=== PATIENT | female | born 1995 | race African-American/Black ===

== ENCOUNTER 2018-08-23 04:16 | Day surgery (SDC) | payer OTHER ==
[2018-08-23 05:34] LABS: Bilirubin Negative (Negative); Glucose, Urine (Dipstick) Negative (Negative); Leukocyte Negative (Negative); Nitrite Negative (Negative); Protein, Urine (Dipstick) 100 mg/dL (Neg-Trace); pH, Urine 6.5 (5.0-9.0)
[2018-08-23 05:36] LABS: Blood, Urine Large (Negative); Clarity Cloudy (Clear)
[2018-08-23 05:47] LABS: RBC/HPF GREATER THAN 50-TNTC HPF (0-3)
[2018-08-23 05:48] LABS: WBC/HPF 0-3 HPF (0-3)
[2018-08-23 05:49] LABS: Bacteria/HPF None Seen HPF (None Seen); Hyaline Casts/LPF 0-3 HYALINE CAST LPF (0-3 Hyaline); Squamous Epithelial 0-3 HPF (0-3)
--- NOTE | 2018-08-24 01:59 | SS ---
DATE OF ADMISSION: 08/23/2018 DATE OF DISCHARGE: 08/23/2018 REGULAR PHYSICIAN: Doc Barr MD. EVALUATING PHYSICIAN: Roger Rosenthal MD CHIEF COMPLAINT: Blood noticed in urine last p.m. HISTORY OF PRESENT ILLNESS: Ms. Park is a 22-year-old black G3, P2-0-0-2 with an estimated date of confinement of 09/10/2018, who presents complaining of blood in her urine starting at approximately 9:00 pm last night. She denies pain with urination or flank pain. Her care has been with Dr. Barr without complications. PAST OBSTETRICAL HISTORY: Includes 2 uncomplicated vaginal deliveries at term. PAST MEDICAL HISTORY: None. PAST SURGICAL HISTORY: Includes repair of her left arm after falling through a glass window. CURRENT MEDICATIONS: vitamins. ALLERGIES: NO KNOWN ALLERGIES. SOCIAL HISTORY: Denies tobacco, alcohol, or drug use. FAMILY HISTORY: Unremarkable. PHYSICAL EXAMINATION: VITAL SIGNS: Stable. She is afebrile in triage. GENERAL: She is in no acute distress. She is pleasant. ABDOMEN: Soft, nontender, and gravid. PELVIC: Deferred. heart rate tracing is stable with no decelerations. No significant uterine contractions were seen. LABORATORY DATA: On urinalysis, her urine is red, cloudy with a specific gravity 1.020 with 2+ protein, large blood, and on microscopic, too numerous to count red cells. ASSESSMENT: 1. 38-week intrauterine . 2. Hematuria. PLAN: At this time, the patient has been empirically placed on Keflex 500 mg p.o. 4 times a day x7 days. Urine culture has been obtained. She was told to keep herself hydrated and follow up with Dr. Barr this week for further evaluation should her bloody urine continued. Job ID: [id number]
== END 2018-08-23 06:11 | disposition home or self-care (01) ==
LOC: L&D/OP 04:16
PROVIDERS: ATTEND Obstetrics & Gynecology
DX: O99.89 Other specified diseases and conditions complicating pregnancy, childbirth and the puerperium (principal); R31.9 Hematuria, unspecified; Z3A.38 38 weeks gestation of pregnancy
CPT/HCPCS: 81003; 81015; 87086; 99282

== ENCOUNTER 2018-09-07 19:15 | Inpatient (IN) | payer OTHER ==
[2018-09-07 19:57] VITALS: BMI 36.1
[2018-09-07] MEDS ORDERED: hydrALAZINE 20 MG/ML VIAL SLOW IVP PRN (20:24)
[2018-09-07] MEDS ORDERED: Ibuprofen 800 MG TAB PO PRN (20:24)
[2018-09-07] MEDS ORDERED: Methylergonovine 0.2 MG/ML VIAL IM PRN (20:24)
[2018-09-07] MEDS ORDERED: Misoprostol 200 MCG TAB PR PRN (20:24)
[2018-09-07] MEDS ORDERED: Lidocaine 1% (PF) 30 ML VIAL SC PRN (20:24)
[2018-09-07] MEDS ORDERED: Carboprost 250 MCG/ML AMP IM PRN (20:24)
[2018-09-07] MEDS ORDERED: Ondansetron PF 4 MG/2 ML Vial IVP PRN (20:24)
[2018-09-07] MEDS ORDERED: Diphenoxylate HCl/Atropine Tablet PO PRN ×2 (20:24)
[2018-09-07] MEDS ORDERED: HYDROcodone/Acetaminophen 5/325 mg Tablet PO PRN ×2 (20:24)
[2018-09-07] MEDS ORDERED: Promethazine HCl 25 MG/ML VIAL IM PRN (20:24)
--- NOTE | 2018-09-07 20:31 | PDOC.LDHP ---
Labor and Delivery H&P Chief complaint: scheduled induction HPI: 22 y/o at 39 and 4/7 weeks presents for Term induction of labor, EDC , GBS Neg. Grav: 4 Para: 2 Current complications: none Abnormal US findings: No Current medications: pre- vitamins Previous surgical history: none Allergies/Adverse Reactions: Allergies Allergy/AdvReac Type Severity Reaction Status Date / Time No Known Allergies Allergy Verified 09/07/18 19:48 Social history: none - Physical Exam Vital signs reviewed and normal: yes General: NAD, resting Heart: RRR Lungs: nonlabored breathing Abdomen: gravid Extremeties: no edema FHT: category 1 - Vaginal Exam cm dilated: 1 - Assessment L&D Assessment: elective induction at term - Plan Plan: admit to L&D, labor augmentation if indicated
[2018-09-07] MEDS ORDERED: NS w/ Oxytocin 10 units 500 ML IV SCH ×2 (20:45)
[2018-09-07] MEDS: Lactated Ringer's 1,000 ML IV SCH (20:47)
[2018-09-07] MEDS: Misoprostol 100 MCG TAB VAG SCH (20:48)
[2018-09-07 21:00] LABS: Hemoglobin 11.6 g/dL (12.0-16.0); Mean Corpuscular HGB CONC 31.2 g/dL (32.0-36.0); Mean Corpuscular Hemoglobin 23.9 pg (27.0-31.0); Mean Corpuscular Volume 76.7 fL (78.0-98.0); Mean Platelet Volume 10.1 fL (7.4-10.4); Platelet Count 192 thou/uL (130-400); RBC Distribution Width 14.9 % (11.5-14.5); Red Blood Cell (RBC) Count 4.85 mill/uL (4.20-5.40)
[2018-09-07 21:40] LABS: Syphilis Antibody Nonreactive (Nonreactive); Syphilis Antibody Index 0.04 S/CO (<1.00 Non-Reactive)
[2018-09-07 23:53] LABS: HBSAg Index 0.46 S/CO (0-0.99); Hep B Surf Ag Non-Reactive S/CO (NonReactive)
[2018-09-08] MEDS: Misoprostol 100 MCG TAB VAG SCH ×4 (00:36→19:57)
[2018-09-08] MEDS ORDERED: Calcium Carbonate 500 MG ChewTAB PO SCH (01:00)
[2018-09-08] MEDS: Lactated Ringer's 1,000 ML IV SCH ×2 (05:00→14:12)
[2018-09-08] MEDS: Butorphanol Tartrate 1 MG/ML VIAL SLOW IVP PRN ×2 (06:24→09:20)
[2018-09-08] MEDS: NS / Oxytocin 40 units/1000ml 1,000 ML IV PRN ×2 (11:50→13:45)
[2018-09-08] MEDS ORDERED: Mag-Al 1200 mg/1200 mg/30 ML UDCUP PO PRN (23:15)
[2018-09-08] MEDS ORDERED: Calcium Carbonate 500 MG ChewTAB PO PRN (23:15)
[2018-09-09] MEDS: Acetaminophen 500 MG TAB PO PRN ×2 (00:30→12:50)
--- NOTE | 2018-09-09 06:22 | PDOC.PP ---
Post Progress Note Post Day #: 1 PO intake tolerated: yes Flatus: yes Ambulation: yes Vital Signs (12 hours) Temp Pulse Resp BP Pulse Ox 09/09/18 00:25 99.4 F 68 20 124/58 L 100 09/08/18 21:10 99.1 F 72 20 119/79 100 Weight Weight 204 lb - Physical Examination General: NAD Cardiovascular: no m/r/g, RRR Respiratory: clear to auscultation bilaterally Abdominal: + bowel sounds, lochia Extremities: negative homans (B) Neurological: no gross focal deficits Psychiatric: A&Ox3, normal affect Result Diagrams: 09/07/18 20:46 Additional Labs: Post Labs Blood Type B POSITIVE 09/07/18 20:46 Hep Bs Antigen Non-Reactive S/CO (NonReactive) 09/07/18 20:46
[2018-09-09 11:11] VITALS: BP 122/85; TEMP 97.7
== END 2018-09-09 15:45 | disposition home or self-care (01) | DRG 807 ==
LOC: L&D 19:31 → 3SE 09-08 15:05
PROVIDERS: ADMIT Obstetrics & Gynecology; ATTEND Obstetrics & Gynecology
PROC: 10E0XZZ Delivery of Products of Conception, External Approach (ICD-10-PCS; principal; 2018-09-08)
DX: O80 Encounter for full-term uncomplicated delivery (principal); Z37.0 Single live birth; Z3A.39 39 weeks gestation of pregnancy
CPT/HCPCS: 36415; 85027; 86780; 86850; 86900; 86901; 87340; J0595; J2405; J2590

== ENCOUNTER 2019-09-08 00:12 | Emergency (ER) | payer MEDICAID ==
[2019-09-08 01:25] LABS: Bilirubin Negative (Negative); Blood, Urine Negative (Negative); Clarity Clear (Clear); Glucose, Urine (Dipstick) Normal (Negative); Ketone, Urine Negative (Negative); Leukocyte Negative Leu/uL (Negative); Nitrite Negative (Negative); Pregnancy Test - Urine (BHCG) POSITIVE (Negative); Protein, Urine (Dipstick) 10 mg/dL (Neg-Trace); Specific Gravity 1.036 (1.002-1.036); Specific Gravity, Urine 1.036 (1.002-1.036)
[2019-09-08 01:26] LABS: Pregu Control Background? CLEAR/WHITE (CLR/WHITE); Pregu Control Bar Appear? YES (CONTROL BAR)
[2019-09-08] MEDS ORDERED: Ondansetron ODT 8 MG TAB ONE (01:26)
--- NOTE | 2019-09-08 07:25 | ULT ---
PRELIMINARY REPORT/[facility]/EMERGENCY AFTER HOURS PROCEDURE EXAM: Ultrasound Obstetrical Less Than 14 Weeks Transabdominal and Transvaginal Study . HISTORY: Irregular menses and fall tonight with vaginal spotting. TECHNIQUE: Real-time, M-mode, and color flow transabdominal and transvaginal sonography was performed or attempted of the maternal pelvis and fetus. COMPARISONS: None . TECHNICAL QUALITY: Satisfactory . FINDINGS: Uterine size: 10.0 x 5.4 x 4.9 cm. Endometrium: Gestational sac in the endometrium consistent with 6 week 2 day gestation with no pole or yolk sac. heart rate: Not visualized . Yolk sac: Not visualized. Uterine masses: None . Subchorionic hemorrhage: Small subchorionic hemorrhage measuring 1.2 x 0.4 cm in maximum cross-sectio nal dimensions. Right Ovary Size: 3.2 x 4.1 x 1.9 cm . Appearance: 1.4 cm corpus luteum. Blood Flow: Normal . Left Ovary Size: 2.2 x 2.6 x 1.9 cm . Appearance: Normal . Blood Flow: Normal . Pelvis Masses: None . Fluid: Small amount of fluid in the cul-de-sac and adjacent to the RIGHT ovary. Other: None . IMPRESSION: Gestational sac in the endometrium with no pole or heart rate consistent with 6 week 2 da y gestation consistent with blighted ovum. Small subchorionic hemorrhage. RIGHT corpus luteum. Small amount of fluid in the cul-de-sac and RIGHT adnexa. ELECTRONICALLY SIGNED BY: Ishaan Moser MD Sep 08, 2019 3:55:39 AM CDT This report is intended for review by the ordering physician only, in accordance of law. If you recei ve this report in error, please call [facility] at [phone]. FINAL REPORT Exam: Transabdominal and endovaginal pelvic ultrasound HISTORY:Recent fall tonight. Vaginal spotting. Serum beta hCG 25,026 COMPARISON:04/19/2013 TECHNIQUE: Transabdominal and endovaginal imaging of the pelvis is performed. Ovaries are interrogate d with grayscale, color flow, Doppler imaging and spectral wave form analysis FINDINGS: Uterus: No myometrial masses. Uterus measuring: Initial report states that the uterus measures 5.4 x 4.9 x 10.0 cm. Hall Clerk zhu s measure the uterus but measurements are not documented on the images provided. Endometrium: Within the endometrium, there is an anechoic focus which may represent a gestational sac . Mean sac diameter is 1.63 cm which would suggest a gestational age of 6 weeks 3 days. No pole or yolk sac. Small hypoechoic focus adjacent to the gestational sac may represent a small subchorionic hemorrhage. Free fluid: Small amount of free fluid in the cul-de-sac and in the right adnexa. Right ovary: Anechoic focus in the uterus measuring 1.4 cm may represent a corpus luteal cyst. Right ovary measurement: 4.1 x 1.9 x 3.2 cm Left ovary: Normal echotexture. Left ovary measurements: 2.2 x 2.6 x 1.9 cm Ovarian Doppler: There is vascular flow to the left and right ovary. IMPRESSION: 1. This report is in disagreement with initial report by [facility] Anechoic focus in the endom etrium which may represent a gestational sac or pseudosac. Differential considerations include an early intrauterine versus a sonographically occult ectopic versus a blighted ovum . 2. Follow-up ultrasound and serial beta-hCGs are recommended 3. Presumed corpus luteal cyst in the right ovary. Results of study discussed with Dr. Mcgrath 09/08/2019 at 8:29 AM Code CR Transcribed Date/Time: 09/08/2019 8:24 AM
== END 2019-09-08 04:30 | disposition home or self-care (01) ==
LOC: ERS 00:12
DX: O02.0 Blighted ovum and nonhydatidiform mole (principal); Z3A.01 Less than 8 weeks gestation of pregnancy; W01.0XXA Fall on same level from slipping, tripping and stumbling without subsequent striking against object, initial encounter; Y92.34 Swimming pool (public) as the place of occurrence of the external cause
CPT/HCPCS: 36415; 76856; 81003; 81025; 84702; Q0162

== ENCOUNTER 2019-10-21 08:16 | Emergency (ER) | payer MEDICAID, OTHER ==
--- NOTE | 2019-10-21 09:03 | ULT ---
Exam: Pelvic ultrasound HISTORY: female patient with vaginal bleeding. COMPARISON: None TECHNIQUE: Multiple grayscale and color Doppler images were obtained in a transabdominal pelvic ultra sound. FINDINGS: There is evidence of a single intrauterine gestation with cardiac Doppler demonstrating heart t ones. heart rate is 157 bpm. The crown-rump length measures 5.49 cm compatible with gestational age of 12 weeks and 1 day. No subchorionic hemorrhage is appreciated. Right ovary is visualized and demonstrates a normal sonographic appearance. Doppler evaluation of the right ovary with spectral analysis and color flow evaluation does demonstrate arterial flow. The left ovary is not visualized. No free fluid is seen in the pelvis. IMPRESSION: 1. Single intrauterine gestation with heart tones documented. Gestational age by measurement of the crown-rump length is 12 weeks and 1 day. 2. No evidence of a subchorionic hemorrhage. 3. Normal-appearing right ovary, the left ovary is not visualized.
[2019-10-21 09:09] LABS: Bacteria/HPF None Seen HPF (None Seen); Bilirubin Negative (Negative); Blood, Urine 3+ (Negative); Clarity Clear (Clear); Glucose, Urine (Dipstick) Normal (Negative); Ketone, Urine 10 mg/dL (Negative); Leukocyte Negative Leu/uL (Negative); Mucous/LPF 1+ LPF (<2+); Nitrite Negative (Negative); Protein, Urine (Dipstick) 50 mg/dL (Neg-Trace); RBC/HPF 0-3 HPF (0-3); Specific Gravity, Urine 1.033 (1.002-1.036); Urobilinogen 3 mg/dL (Less than 2)
[2019-10-21 09:21] LABS: #Basophils 0.1 thou/uL (0.0-0.2); #Eosinphils 0.1 thou/uL (0.0-0.7); #Monocytes 0.4 thou/uL (0.11-0.59); #Neutrophils 4.9 thou/uL (1.40-6.50); %Basophils 0.7 % (0.0-1.0); %Eosinophils 0.9 % (0.0-10.0); %Lymphocytes 27.1 % (21.0-51.0); %Monocytes 4.8 % (0.0-10.0); %Neutrophils 66.5 % (42.0-75.0); Hemoglobin 12.6 g/dL (12.0-16.0); Mean Corpuscular HGB CONC 32.6 g/dL (32.0-36.0); Mean Corpuscular Hemoglobin 26.3 pg (27.0-31.0); Mean Corpuscular Volume 80.6 fL (78.0-98.0); Mean Platelet Volume 8.4 fL (7.4-10.4); Platelet Count 212 thou/uL (130-400); RBC Distribution Width 12.6 % (11.5-14.5); Red Blood Cell (RBC) Count 4.81 mill/uL (4.20-5.40); White Blood Cell (WBC) Count 7.4 thou/uL (4.8-10.8)
== END 2019-10-21 10:17 | disposition home or self-care (01) ==
LOC: ERS 08:16
DX: O20.0 Threatened abortion (principal); Z79.899 Other long term (current) drug therapy; Z3A.12 12 weeks gestation of pregnancy
CPT/HCPCS: 36415; 76856; 81003; 81015; 84702; 85025; 86900; 86901; 93976

== ENCOUNTER 2019-11-04 10:27 | Emergency (ER) | payer OTHER ==
[2019-11-04 11:18] LABS: Bacteria/HPF None Seen HPF (None Seen); Bilirubin Negative (Negative); Blood, Urine 3+ (Negative); Clarity Clear (Clear); Glucose, Urine (Dipstick) Normal (Negative); Ketone, Urine 20 mg/dL (Negative); Leukocyte Negative Leu/uL (Negative); Mucous/LPF 2+ LPF (<2+); Nitrite Negative (Negative); Protein, Urine (Dipstick) 20 mg/dL (Neg-Trace); RBC/HPF 0-3 HPF (0-3); Specific Gravity, Urine 1.032 (1.002-1.036); Urobilinogen Normal mg/dL (Less than 2); WBC/HPF 0-3 HPF (0-3); pH, Urine 6.5 (5.0-9.0)
[2019-11-04 11:20] LABS: #Basophils 0.1 thou/uL (0.0-0.2); #Eosinphils 0.1 thou/uL (0.0-0.7); #Lymphocytes 1.8 thou/uL (1.20-3.40); #Monocytes 0.3 thou/uL (0.11-0.59); #Neutrophils 4.9 thou/uL (1.40-6.50); %Eosinophils 1.1 % (0.0-10.0); %Lymphocytes 24.9 % (21.0-51.0); Hemoglobin 12.6 g/dL (12.0-16.0); Mean Corpuscular HGB CONC 32.2 g/dL (32.0-36.0); Mean Corpuscular Hemoglobin 26.2 pg (27.0-31.0); Mean Corpuscular Volume 81.3 fL (78.0-98.0); Mean Platelet Volume 8.3 fL (7.4-10.4); Platelet Count 217 thou/uL (130-400); RBC Distribution Width 12.7 % (11.5-14.5); Red Blood Cell (RBC) Count 4.82 mill/uL (4.20-5.40)
[2019-11-04 11:39] LABS: ALT (SGPT) 50 U/L (8-55); AST (SGOT) 23 U/L (5-34); Albumin 3.5 g/dL (3.5-5.0); Alkaline Phosphatase 44 U/L (40-110); Anion Gap 11 mmol/L (10-20); BUN (Urea Nitrogen) 6 mg/dL (7.0-18.7); Bilirubin, Total 0.2 mg/dL (0.2-1.2); Calc. Creatinine Clearance 0 mL/min (70-130); Calcium 9.1 mg/dL (7.8-10.44); Carbon Dioxide 24 mmol/L (22-29); Chloride 104 mmol/L (98-107); Estimated GFR-MDRD Greater than 90; Globulin 3.4 g/dL (2.4-3.5); Glucose 105 mg/dL (70-105); Potassium 4.2 mmol/L (3.5-5.1); Protein, Total 6.9 g/dL (6.0-8.3); Sodium 135 mmol/L (136-145)
--- NOTE | 2019-11-04 12:13 | ULT ---
EXAM: US [facility] PROVIDED CLINICAL HISTORY: Positive and vaginal bleeding. COMPARISON: 10/21/2019 FINDINGS: Again noted is evidence of a single intrauterine gestation in variable presentation. Cardiac Doppler does demonstrates heart tones with a heart rate of 158 bpm. Placenta is located anteriorly. Subjectively, there is a normal amount of amniotic fluid. There is a wedge-shaped hypoechoic area seen in a subchorionic location inferior to the gestational s ac which measures 3 cm x 3.6 cm x 2.2 cm. This may represent a subchorionic hemorrhage. Not visualized on prior exam. measurements: Biparietal diameter 2.55 cm, 14 weeks 3 days Head circumference 9.88 cm, 14 weeks 4 days Abdominal circumference 8.06 cm, 14 weeks 3 days Femur length 1.28 cm, 13 weeks 5 days Gestational age by ultrasound is 14 weeks and 2 days with WHITNEY on 05/02/2020. Gestational age by the las t menstrual period is 13 weeks and 4 days. The ovaries are not visualized. IMPRESSION: 1. Findings suggestive of a subchorionic hemorrhage lower uterine segment with greatest measurement o f 3.6 cm. Continued close follow-up is recommended. 2. Single intrauterine gestation with heart tones documented. Gestational age by ultrasound is 14 weeks and 2 days with WHITNEY on 05/02/2020.
== END 2019-11-04 14:00 | disposition home or self-care (01) ==
LOC: ERS 10:27
DX: O20.8 Other hemorrhage in early pregnancy (principal); Z79.899 Other long term (current) drug therapy; Z3A.13 13 weeks gestation of pregnancy
CPT/HCPCS: 36415; 76815; 80053; 81003; 81015; 84702; 85025

== ENCOUNTER 2019-12-14 12:39 | Day surgery (SDC) | payer OTHER ==
[2019-12-14 13:28] VITALS: BMI 37.2
[2019-12-14] MEDS ORDERED: hydrALAZINE 20 MG/ML VIAL SLOW IVP PRN (14:55)
--- NOTE | 2019-12-14 16:42 | ULT ---
Limited obstetrical ultrasound: 12/14/2019 TECHNIQUE: Multiplanar grayscale sonographic imaging of the gravid uterus obtained. HISTORY: 24-year-old female, evaluate placental location FINDINGS: Cervical length is approximately 5-6 cm. The placental tip is anteriorly located with no ev idence for placental previa or abruption. A single intrauterine gestation is noted with a heart rate of 127 bpm. anatomy is not ass essed on this examination. IMPRESSION: Live intrauterine gestation as above.
--- NOTE | 2019-12-14 18:34 | PRG ---
DATE OF SERVICE: 12/14/2019 PRIMARY OB: Dr. Doc Barr. CHIEF COMPLAINT: Back pain and pelvic pain. HISTORY OF PRESENT ILLNESS: The patient is a 24-year-old G5, P3 female, with an intrauterine at 20 weeks and 2 days, presenting to Labor and Delivery with a 2-day history of back pain and pelvic pain. The patient reports that she has been on bedrest since 12 weeks and she was told that she has placenta previa and reports she is normally very active person, but has been on bed rest at her doctor's recommendations. The patient has expressed a high level of worry and concern about the health of this . When asked more specifically about her pain, the patient reports that most of her pain is in her mid back toward the middle of it. She reports that the pain is worse with activity and movement. She is unable to identify any particular inciting event. She also reports she has bilateral lower pelvic pain that is sharp in nature. The patient denies any fever, cough, headache, chest pain, shortness of breath, nausea, vomiting, diarrhea, constipation, hip problems, knee problems, muscle weakness. She denies vaginal bleeding or leakage of fluid, urinary urgency or frequency. She reports that she has not been bleeding for 2 weeks, which had been a problem with this up to that time. The patient reports she is scheduled next week to see Dr. Barr again. PAST MEDICAL HISTORY: Negative. PAST SURGICAL HISTORY: She had left arm surgery due to glass injury requiring repair of vital structures. SOCIAL HISTORY: Denies drug, alcohol, tobacco use. ALLERGIES: NO KNOWN DRUG ALLERGIES. MEDICATIONS: vitamins. PHYSICAL EXAMINATION: VITAL SIGNS: Blood pressure 107/59, heart rate of 83, temperature 98.5, respiratory rate of 18. GENERAL: She appears to be in no acute distress. She is alert and oriented, cooperative and pleasant to interact with. HEAD: Normocephalic, atraumatic. LUNGS: Clear to auscultation bilaterally. HEART: Has regular rate and rhythm. ABDOMEN: Gravid and soft. She has some minimal tenderness in her lower pelvis, but did not appear to give her much discomfort with palpation and deviation of the uterus to the left and right. No suprapubic tenderness. She does have some very exquisite tenderness to palpation in her paravertebral muscles in the upper lumbar region, primarily on the patient's right side. She also reports some tenderness in her upper gluteal region on her right side. : Otherwise deferred. heart tones in the 140s. Bedside ultrasound was performed to confirm placental placement. Placenta is noted to be anterior without placenta previa. The patient was counseled to take a warm shower for about 20 minutes there in the room, which greatly alleviated her discomfort. ASSESSMENT AND PLAN: The patient is a 24-year-old G5, P3 female, with an intrauterine at 20 weeks and 2 days, presenting with back pain and lower pelvic pain, which are most consistent with musculoskeletal pain of . Her pain was much relieved with some trigger-point pressure and warm shower. She was also much relieved when I told that her placenta previa appears to be resolved. The patient is being discharged home with instructions to follow up with her primary OB as scheduled. Job ID: [id number]
== END 2019-12-14 17:00 ==
LOC: L&D/OP 12:39
PROVIDERS: ATTEND Obstetrics & Gynecology
DX: O99.891 Other specified diseases and conditions complicating pregnancy (principal); M54.9 Dorsalgia, unspecified; R10.2 Pelvic and perineal pain; Z3A.20 20 weeks gestation of pregnancy
CPT/HCPCS: 76815; 99282

== ENCOUNTER 2020-12-21 08:21 | Emergency (ER) | payer OTHER ==
[2020-12-21] MEDS ORDERED: Acetaminophen 500 MG TAB ONE (08:45)
== END 2020-12-21 09:10 | disposition home or self-care (01) ==
LOC: ERS 08:21
DX: K04.7 Periapical abscess without sinus (principal)
CPT/HCPCS: 99282

== ENCOUNTER 2022-05-03 00:43 | Emergency (ER) | payer OTHER ==
[2022-05-03] MEDS ORDERED: Acetaminophen 500 MG TAB ONE (02:53)
[2022-05-03 03:12] LABS: #Basophils 0.1 thou/uL (0.0-0.2); #Eosinphils 0.2 thou/uL (0.0-0.7); #Lymphocytes 3.8 thou/uL (1.20-3.40); #Monocytes 0.8 thou/uL (0.11-0.59); #Neutrophils 5.3 thou/uL (1.40-6.50); %Basophils 0.7 % (0.0-1.0); %Eosinophils 1.7 % (0.0-10.0); %Lymphocytes 37.8 % (21.0-51.0); %Monocytes 7.6 % (0.0-10.0); %Neutrophils 52.3 % (42.0-75.0); Hemoglobin 11.8 g/dL (12.0-16.0); Mean Corpuscular HGB CONC 31.7 g/dL (32.0-36.0); Mean Corpuscular Hemoglobin 24.9 pg (27.0-31.0); Mean Corpuscular Volume 78.6 fl (78.0-98.0); Mean Platelet Volume 9.2 fL (7.4-10.4); Platelet Count 223 10x3/uL (130-400); RBC Distribution Width 14.4 % (11.5-14.5); Red Blood Cell (RBC) Count 4.71 mill/uL (4.20-5.40); White Blood Cell (WBC) Count 10.2 10x3/uL (4.8-10.8)
== END 2022-05-03 03:55 | disposition home or self-care (01) ==
LOC: ERS 00:43
DX: R10.9 Unspecified abdominal pain (principal)
CPT/HCPCS: 36415; 84702; 85025; 86850; 86900; 86901

== ENCOUNTER 2022-06-03 13:15 | Outpatient (CLI) | payer OTHER | END 2022-06-03 13:16 | disposition home or self-care (01) | LOC: ULT 13:15 | PROVIDERS: ATTEND Nurse Practitioner Women's Health | DX: R10.2 Pelvic and perineal pain (principal) | CPT/HCPCS: 76856; 93976 ==